=== PATIENT | male | born 1995 | race Caucasian/White ===

== ENCOUNTER 2019-08-09 03:29 | Emergency (ER) | payer OTHER ==
[~2019-08-09] VITALS: Ht 172.7 cm; Wt 127.0 kg
[2019-08-09 03:29] VITALS: BP 135/76
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
--- NOTE | 2019-08-09 03:29 | NUR ---
PT AMBULATED TO [facility]. ACCOMPANIED BY [place] [employer].
[2019-08-09 03:57] VITALS: BP 135/76
--- NOTE | 2019-08-09 03:58 | NUR ---
PATIENT [facility] POLICE DEPT. PATIENT EXAMINED BY DR. PLATA. PATIENT MEDICALLY CLEARED AND RELEASED IN CUSTODY IN STABLE CONDITION. ORIGINAL PRE-BOOK FORM GIVEN TO OFFICER REAGAN.
== END 2019-08-09 03:58 ==
LOC: MED 03:29
DX: S00.01XA Abrasion of scalp, initial encounter (principal); I10 Essential (primary) hypertension; J45.909 Unspecified asthma, uncomplicated; Z02.89 Encounter for other administrative examinations; V49.9XXA Car occupant (driver) (passenger) injured in unspecified traffic accident, initial encounter; Y93.89 Activity, other specified; Y92.89 Other specified places as the place of occurrence of the external cause; Y99.8 Other external cause status
CPT/HCPCS: 99283